=== PATIENT | female | born 1955 | race Native Hawaiian/Other Pacific Islander ===

== ENCOUNTER 2022-02-18 14:17 | Emergency (ER) | payer OTHER ==
[~2022-02-18] VITALS: Ht 175.3 cm; Wt 94.3 kg
[2022-02-18 14:22] VITALS: TEMP 97.6
[2022-02-18 15:04] LABS: PLATELET COUNT 163 K/uL (152-353)
[2022-02-18 15:10] LABS: POTASSIUM 3.3 mmol/L (3.6-5.2)
[2022-02-18 15:44] VITALS: BP 124/70
[2022-02-18] MEDS ORDERED: ASA LOW DOSE81 MG PO (16:05)
[2022-02-18] MEDS ORDERED: LIPITOR40 MG PO (16:05)
[2022-02-18] MEDS ORDERED: BUSPIRONE HYDR7.5 MG PO (16:06)
[2022-02-18] MEDS ORDERED: DOK100 MG PO (16:08)
[2022-02-18] MEDS ORDERED: DULOXETINE HYDR60 MG PO (16:16)
[2022-02-18] MEDS ORDERED: EUTHYROX50 MCG PO (16:16)
[2022-02-18] MEDS ORDERED: MELATONIN CR3 MG PO (16:17)
[2022-02-18] MEDS ORDERED: ONDANSETRON HYDR4 MG PO (16:18)
[2022-02-18] MEDS ORDERED: RYBELSUS14 MG PO (16:19)
[2022-02-18] MEDS ORDERED: D325 MCG PO (16:20)
[2022-02-18] MEDS ORDERED: ENDOCET1 TAB PO (16:24)
== END 2022-02-18 15:46 | disposition still patient (30) ==
LOC: ED 14:17
PROVIDERS: Emergency Medicine
DX: F32.89 Other specified depressive episodes (principal); R45.851 Suicidal ideations; E87.6 Hypokalemia; Z00.8 Encounter for other general examination; Z11.52 Encounter for screening for COVID-19
CPT/HCPCS: 80053; 81002; 85027; 87635; 93005; 99283; U0003